=== PATIENT | male | born 1995 | race Caucasian/White ===

== ENCOUNTER 2025-07-27 15:57 | Inpatient (IN) ==
[2025-07-27] MEDS ORDERED: IOPAMIDOL 100 ML BOTTLE IV ONE (15:58)
[2025-07-27] MEDS: ONDANSETRON 4 MG/2 ML VIAL IV ONE (16:35)
[2025-07-27] MEDS: LACTATED RINGERS 1,000 ML IV ONE ×2 (16:40→17:56)
[2025-07-27 16:45] LABS: Basophils # (Auto) 0.02 K/mcL (0.00-0.30); Basophils % (Auto) 0.2 % (0.0-2.0); Eosinophils # (Auto) 0.01 K/mcL (0.00-0.70); Eosinophils % (Auto) 0.1 % (0.0-7.0); Hematocrit 50.8 % (40.1-51.0); Hemoglobin 17.3 g/dL (13.7-17.5); Lymphocytes # (Auto) 1.94 K/mcL (1.50-4.80); Lymphocytes % (Auto) 15.3 % (15.5-49.0); Mean Corpuscular HGB Conc 34.1 g/dL (31.0-36.0); Monocytes # (Auto) 1.21 K/mcL (0.10-0.90); Monocytes % (Auto) 9.5 % (1.0-12.0); Neutrophils % (Auto) 74.5 % (38.0-78.0); Platelet Count 581 K/mcL (140-440); RBC 5.83 M/mcL (4.63-6.08); WBC 12.7 K/mcL (4.5-11.0)
[2025-07-27 17:02] LABS: ALT/SGPT 46 U/L (<40); AST/SGOT 48 U/L (<40); Albumin 4.8 gm/dL (3.2-5.2); Albumin/Globulin Ratio 1.1 (1.0-2.3); Alkaline Phosphatase 96 U/L (39-117); Anion Gap 23.0 (8.0-16.0); Bilirubin,Total 0.8 mg/dL (0.1-1.0); Blood Urea Nitrogen 41 mg/dL (6-20); Calcium 10.4 mg/dL (8.6-10.4); Carbon Dioxide 28 mmol/L (22-30); Chloride 84 mmol/L (96-108); Globulin 4.3 gm/dL (2.2-3.7); Glucose 157 mg/dL (70-105); Potassium 3.0 mmol/L (3.3-5.1); Sodium 135 mmol/L (133-145)
[2025-07-27] MEDS: POTASSIUM CHLORIDE 20 MEQ TABLET PO ONE (17:23)
[2025-07-27] MEDS: 0.9 % SODIUM CHLORIDE 1,000 ML IV ONE (17:59)
[2025-07-27] MEDS: KETOROLAC 30 MG/ML VIAL IV ONE (18:21)
[2025-07-27] MEDS: PIPERACILLIN SODIUM/TAZOBACTAM 3.375 GM in DEXTROSE 5% IN WATER 50 ML IV ONE (18:21)
[2025-07-27] MEDS ORDERED: ACETAMINOPHEN 325 MG TABLET PO PRN (18:38)
[2025-07-27 18:42] LABS: C-Reactive Protein 6.31 mg/dL (0.03-0.80)
[2025-07-27 18:47] LABS: Bacteria,Urine 0 /hpf (0); Bilirubin,Urine NEGATIVE (Negative); Color,Urine LT. YELLOW; Glucose,Urine (UA) NEGATIVE (Negative); Ketones,Urine NEGATIVE (Negative); Leukocyte Esterase,Urine NEGATIVE /uL (Negative); PH,Urine 7.0 (5.0-9.0); Protein,Urine NEGATIVE (Negative); Specific Gravity,Urine <= 1.005 (1.000-1.035); Urobilinogen,Urine 0.2 mg/dL
[2025-07-27 19:07] LABS: INR 1.1 (0.9-1.1); Prothrombin Time 14.8 sec (11.9-14.5)
[2025-07-27] MEDS: 0.9 % SODIUM CHLORIDE 1,000 ML IV SCH (19:32)
[2025-07-27] MEDS: PIPERACILLIN SODIUM/TAZOBACTAM 4.5 GM in DEXTROSE 5% IN WATER 100 ML IV SCH (20:49)
[2025-07-27] MEDS: HYDROmorphone 0.5 MG/0.5 ML SYRINGE IV PRN (23:56)
[2025-07-28] MEDS: PIPERACILLIN SODIUM/TAZOBACTAM 3.375 GM in DEXTROSE 5% IN WATER 100 ML IV SCH (00:25)
[2025-07-28] MEDS: ONDANSETRON 4 MG/2 ML VIAL IV PRN (04:29)
[2025-07-28] MEDS: PROCHLORPERAZINE 10 MG/2 ML VIAL IV PRN (06:00)
[2025-07-28 06:30] LABS: Basophils # (Auto) 0.02 K/mcL (0.00-0.30); Basophils % (Auto) 0.1 % (0.0-2.0); Eosinophils # (Auto) 0.10 K/mcL (0.00-0.70); Eosinophils % (Auto) 0.7 % (0.0-7.0); Hematocrit 43.0 % (40.1-51.0); Hemoglobin 14.3 g/dL (13.7-17.5); Lymphocytes # (Auto) 1.67 K/mcL (1.50-4.80); Lymphocytes % (Auto) 12.3 % (15.5-49.0); Mean Corpuscular HGB Conc 33.3 g/dL (31.0-36.0); Monocytes # (Auto) 1.11 K/mcL (0.10-0.90); Monocytes % (Auto) 8.2 % (1.0-12.0); Neutrophils % (Auto) 78.6 % (38.0-78.0); Platelet Count 464 K/mcL (140-440); RBC 4.74 M/mcL (4.63-6.08); WBC 13.6 K/mcL (4.5-11.0)
[2025-07-28 07:36] LABS: ALT/SGPT 28 U/L (<40); AST/SGOT 25 U/L (<40); Albumin 3.8 gm/dL (3.2-5.2); Albumin/Globulin Ratio 1.2 (1.0-2.3); Alkaline Phosphatase 67 U/L (39-117); Anion Gap 11.0 (8.0-16.0); Bilirubin,Direct 0.3 mg/dL (<0.3); Bilirubin,Total 0.6 mg/dL (0.1-1.0); Blood Urea Nitrogen 35 mg/dL (6-20); Calcium 8.8 mg/dL (8.6-10.4); Carbon Dioxide 32 mmol/L (22-30); Chloride 95 mmol/L (96-108); Globulin 3.2 gm/dL (2.2-3.7); Glucose 115 mg/dL (70-105); Phosphorous 2.6 mg/dL (2.5-4.5); Potassium 2.9 mmol/L (3.3-5.1); Sodium 138 mmol/L (133-145); Triglycerides 80 mg/dL (<150); Uric Acid 6.8 mg/dL (2.5-8.0)
[2025-07-28] MEDS ORDERED: ONDANSETRON 4 MG/2 ML VIAL ONE (08:49)
[2025-07-28] MEDS ORDERED: fentaNYL 100 MCG/2 ML VIAL ONE ×2 (08:49→12:32)
[2025-07-28] MEDS ORDERED: PROPOFOL 200 MG/20 ML VIAL IV ONE (08:49)
[2025-07-28] MEDS ORDERED: DEXAMETHASONE 10 MG/ML VIAL ONE (08:49)
[2025-07-28] MEDS ORDERED: LIDOCAINE 2% PF 5 ML VIAL ONE (08:49)
[2025-07-28] MEDS ORDERED: ROCURONIUM 10 MG/ML ML IV ONE ×2 (08:51→11:50)
[2025-07-28] MEDS: POTASSIUM CHLORIDE 40 MEQ in DEXTROSE 5% IN WATER 500 ML IV ONE (09:10)
[2025-07-28] MEDS ORDERED: fentaNYL 100 MCG/2 ML VIAL IV PRN (12:23)
[2025-07-28] MEDS ORDERED: MEPERIDINE 25 MG/ML VIAL IV PRN (12:23)
[2025-07-28] MEDS ORDERED: IPRATROPIUM/ALBUTEROL 3 ML AMPUL.NEB NEB PRN (12:23)
[2025-07-28] MEDS ORDERED: METHOCARBAMOL 1,000 MG/10 ML VIAL IV PRN (12:23)
[2025-07-28] MEDS ORDERED: SUGAMMADEX SODIUM 200 MG/2 ML VIAL IV ONE (12:23)
[2025-07-28] MEDS ORDERED: ONDANSETRON 4 MG/2 ML VIAL IV PRN (12:23)
[2025-07-28] MEDS ORDERED: diphenhydrAMINE 50 MG/ML VIAL IV PRN (12:23)
[2025-07-28] MEDS ORDERED: KETOROLAC 30 MG/ML VIAL IV PRN (12:23)
[2025-07-28] MEDS ORDERED: LACTATED RINGERS 250 ML IV PRN (12:23)
[2025-07-28] MEDS ORDERED: NALOXONE HCL 0.4 MG/ML VIAL IV PRN (12:23)
[2025-07-28] MEDS ORDERED: ALBUTEROL SULFATE 2.5 MG/3 ML NEBULIZER NEB PRN (12:35)
[2025-07-28] MEDS: ACETAMINOPHEN 1,000 MG/100 ML BAG IV ONE (12:48)
[2025-07-28] MEDS: 0.9 % SODIUM CHLORIDE 10 ML SYRINGE IV SCH (13:34)
[2025-07-28] MEDS: 0.9 % SODIUM CHLORIDE 1,000 ML IV SCH (13:34)
[2025-07-28] MEDS: LACTATED RINGERS 1,000 ML IV SCH (14:18)
[2025-07-28] MEDS: KETOROLAC 30 MG/ML VIAL IV PRN (15:16)
[2025-07-28] MEDS: METOCLOPRAMIDE 10 MG/2 ML VIAL IV SCH (17:23)
[2025-07-28] MEDS: ACETAMINOPHEN 650 MG/65 ML BAG IV PRN (22:12)
[2025-07-28] MEDS: SENNOSIDES 1 TABLET PO SCH (22:14)
[2025-07-28] MEDS: DOCUSATE SODIUM 100 MG CAPSULE PO SCH (22:14)
[2025-07-29 07:12] LABS: Basophils # (Auto) 0.01 K/mcL (0.00-0.30); Basophils % (Auto) 0.1 % (0.0-2.0); Eosinophils # (Auto) 0.04 K/mcL (0.00-0.70); Eosinophils % (Auto) 0.4 % (0.0-7.0); Hematocrit 37.7 % (40.1-51.0); Hemoglobin 12.4 g/dL (13.7-17.5); Lymphocytes # (Auto) 2.29 K/mcL (1.50-4.80); Lymphocytes % (Auto) 22.5 % (15.5-49.0); Mean Corpuscular HGB Conc 32.9 g/dL (31.0-36.0); Monocytes # (Auto) 0.62 K/mcL (0.10-0.90); Monocytes % (Auto) 6.1 % (1.0-12.0); Neutrophils % (Auto) 70.7 % (38.0-78.0); Platelet Count 411 K/mcL (140-440); RBC 4.06 M/mcL (4.63-6.08); WBC 10.2 K/mcL (4.5-11.0)
[2025-07-29 07:46] LABS: ALT/SGPT 20 U/L (<40); AST/SGOT 17 U/L (<40); Albumin 3.2 gm/dL (3.2-5.2); Albumin/Globulin Ratio 1.2 (1.0-2.3); Alkaline Phosphatase 54 U/L (39-117); Anion Gap 9.0 (8.0-16.0); Bilirubin,Total 0.5 mg/dL (0.1-1.0); Blood Urea Nitrogen 24 mg/dL (6-20); Calcium 8.2 mg/dL (8.6-10.4); Carbon Dioxide 31 mmol/L (22-30); Chloride 100 mmol/L (96-108); Globulin 2.6 gm/dL (2.2-3.7); Glucose 90 mg/dL (70-105); Potassium 3.3 mmol/L (3.3-5.1); Sodium 140 mmol/L (133-145)
[2025-07-29] MEDS: ENOXAPARIN 40 MG/0.4 ML SYRINGE SQ SCH (08:14)
[2025-07-29] MEDS: DEXTROSE 5%-1/2NS W/20MEQ KCL 1,000 ML IV SCH (08:38)
[2025-07-29] MEDS: POTASSIUM CHLORIDE 20 MEQ in DEXTROSE 5% IN WATER 250 ML IV ONE (09:21)
[2025-07-30] MEDS: ONDANSETRON 4 MG/2 ML VIAL IV PRN (01:23)
[2025-07-30 06:13] LABS: Basophils # (Auto) 0.04 K/mcL (0.00-0.30); Basophils % (Auto) 0.3 % (0.0-2.0); Eosinophils # (Auto) 0.46 K/mcL (0.00-0.70); Eosinophils % (Auto) 3.5 % (0.0-7.0); Hematocrit 37.1 % (40.1-51.0); Hemoglobin 11.9 g/dL (13.7-17.5); Lymphocytes # (Auto) 2.72 K/mcL (1.50-4.80); Lymphocytes % (Auto) 20.4 % (15.5-49.0); Mean Corpuscular HGB Conc 32.1 g/dL (31.0-36.0); Monocytes # (Auto) 0.62 K/mcL (0.10-0.90); Monocytes % (Auto) 4.7 % (1.0-12.0); Neutrophils % (Auto) 70.7 % (38.0-78.0); Platelet Count 401 K/mcL (140-440); RBC 3.95 M/mcL (4.63-6.08); WBC 13.3 K/mcL (4.5-11.0)
[2025-07-30 06:39] LABS: ALT/SGPT 17 U/L (<40); AST/SGOT 17 U/L (<40); Albumin 3.1 gm/dL (3.2-5.2); Albumin/Globulin Ratio 1.2 (1.0-2.3); Alkaline Phosphatase 62 U/L (39-117); Anion Gap 6.0 (8.0-16.0); Bilirubin,Total 0.3 mg/dL (0.1-1.0); Blood Urea Nitrogen 16 mg/dL (6-20); Calcium 8.3 mg/dL (8.6-10.4); Carbon Dioxide 33 mmol/L (22-30); Chloride 101 mmol/L (96-108); Globulin 2.6 gm/dL (2.2-3.7); Glucose 99 mg/dL (70-105); Potassium 3.4 mmol/L (3.3-5.1); Sodium 140 mmol/L (133-145)
[2025-07-31 06:20] LABS: Basophils # (Auto) 0.04 K/mcL (0.00-0.30); Basophils % (Auto) 0.3 % (0.0-2.0); Eosinophils # (Auto) 0.78 K/mcL (0.00-0.70); Eosinophils % (Auto) 6.1 % (0.0-7.0); Hematocrit 38.5 % (40.1-51.0); Hemoglobin 12.3 g/dL (13.7-17.5); Lymphocytes # (Auto) 3.55 K/mcL (1.50-4.80); Lymphocytes % (Auto) 28.0 % (15.5-49.0); Mean Corpuscular HGB Conc 31.9 g/dL (31.0-36.0); Monocytes # (Auto) 0.54 K/mcL (0.10-0.90); Monocytes % (Auto) 4.3 % (1.0-12.0); Neutrophils % (Auto) 61.0 % (38.0-78.0); Platelet Count 448 K/mcL (140-440); RBC 4.06 M/mcL (4.63-6.08); WBC 12.7 K/mcL (4.5-11.0)
[2025-07-31 06:49] LABS: ALT/SGPT 17 U/L (<40); AST/SGOT 16 U/L (<40); Albumin 3.2 gm/dL (3.2-5.2); Albumin/Globulin Ratio 1.1 (1.0-2.3); Alkaline Phosphatase 66 U/L (39-117); Anion Gap 8.0 (8.0-16.0); Bilirubin,Total 0.3 mg/dL (0.1-1.0); Blood Urea Nitrogen 6 mg/dL (6-20); Calcium 8.5 mg/dL (8.6-10.4); Carbon Dioxide 27 mmol/L (22-30); Chloride 102 mmol/L (96-108); Globulin 2.9 gm/dL (2.2-3.7); Glucose 106 mg/dL (70-105); Potassium 3.4 mmol/L (3.3-5.1); Sodium 137 mmol/L (133-145)
== END 2025-07-31 12:15 | disposition home or self-care (01) | DRG 329 ==
LOC: ED 15:57 → MEDSUR 15:57
PROVIDERS: ADMIT Surgery; ATTEND Surgery
PROC: LAPAPPY (ICD-10-PCS; 2025-07-28 10:45)